=== PATIENT | female | born 1955 | race Caucasian/White ===

== ENCOUNTER 2017-04-27 17:40 | Inpatient (IN) | payer OTHER ==
[~2017-04-27] VITALS: Ht 165.1 cm; Wt 83.0 kg
[2017-04-27 17:42] VITALS: BP 176/79
[2017-04-27] MEDS ORDERED: SIMV20TA1 PO (17:47)
[2017-04-27] MEDS ORDERED: METF850T37 PO (17:47)
--- NOTE | 2017-04-27 17:50 | NUR ---
Patient to bed 07.
--- NOTE | 2017-04-27 17:54 | NUR ---
Dr. Auguste evaluating patient at bedside.
[2017-04-27] MEDS ORDERED: ASPIRIN 325 MG TAB PO ONE (18:00)
[2017-04-27] MEDS ORDERED: NITROGLYCERIN 0.4 MG TAB SL ONE (18:00)
--- NOTE | 2017-04-27 18:00 | NUR ---
PT STATES CHEST PAIN SINCE LAST NIGHT. DENIES N/V/D; SKIN IS PINK/WARM/DRY; AAOX4 WITH EVEN AND STEADY GAIT; LUNGS CLEAR BL; HR EVEN AND REGULAR; PT DENIES ANY FEVER, CP, SOB, OR COUGH AT THIS TIME; PATIENT STATES PAIN OF 6/10 AT THIS TIME; VSS; PATIENT POSITIONED FOR COMFORT; HOB ELEVATED; BEDRAILS UP X2; BED DOWN. ER MD MADE AWARE OF PT STATUS.
[2017-04-27 18:26] LABS: BASOPHILS # (AUTO) 0.2 K/uL (0.00-0.22); EOSINOPHILS # (AUTO) 0.3 K/uL (0-0.4); EOSINOPHILS % (AUTO) 2.6 % (0.0-4.0); HEMATOCRIT 39.2 % (36-48); HEMOGLOBIN 13.1 g/dL (12.0-16.0); LYMPHOCYTES # (AUTO) 3.1 K/uL (2.5-16.5); LYMPHOCYTES % (AUTO) 30.9 % (20.5-51.1); MEAN CORPUSCULAR HEMOGLOBIN 31 pg (27-31); MEAN CORPUSCULAR HGB CONC 34 g/dL (33-37); MEAN CORPUSCULAR VOLUME 92 fL (80-94); MONOCYTES # (AUTO) 0.8 K/uL (0.8-1.0); MONOCYTES % (AUTO) 7.9 % (1.7-9.3); NEUTROPHILS # (AUTO) 5.6 K/uL (1.8-7.7); NEUTROPHILS % (AUTO) 56.6 % (42.2-75.2); PLATELET COUNT (AUTO) 258 K/uL (140-450); RED BLOOD CELL COUNT(AUTO) 4.28 MIL/uL (4.20-5.40); RED CELL DISTRIBUTION WIDTH 13.4 % (11.6-13.7); WHITE BLOOD COUNT (AUTO) 9.9 K/uL (4.8-10.8)
--- NOTE | 2017-04-27 18:33 | NUR ---
PT DENIES CHEST PAIN AT THIS TIME. BP 126/68. HR 62, SPO2 92%. ON ROOM AIR.
[2017-04-27 18:37] LABS: ANION GAP 12.6 (8-16); CALCIUM 8.9 mg/dL (8.5-10.1); CARBON DIOXIDE 27.2 mmol/L (21-32); CREATININE 0.7 mg/dL (0.6-1.3); POTASSIUM 3.8 mmol/L (3.5-5.1)
[2017-04-27 18:42] LABS: ALBUMIN 3.7 g/dL (3.4-5.0); TOTAL BILIRUBIN 0.2 mg/dL (0.0-1.0)
[2017-04-27 18:43] LABS: INR 1.1 (0.8-1.2); PARTIAL THROMBOPLASTIN TIME 25.6 secs (22-35.6); PROTHROMBIN TIME 10.7 secs (10.8-13.4)
--- NOTE | 2017-04-27 19:00 | NUR ---
FAMILY AT BEDSIDE. NO C/O PAIN AT THIS TIME.
[2017-04-27] MEDS ORDERED: ONDANSETRON 4 MG/2 ML VIAL IVP PRN (19:10)
[2017-04-27] MEDS ORDERED: LORazepam 2 MG/ML VIAL IVP PRN (19:10)
[2017-04-27] MEDS ORDERED: INSULIN LISPRO SLIDING SCALE 100 UNITS/ML VIAL SUBQ PRN (19:10)
[2017-04-27] MEDS ORDERED: NITROGLYCERIN 2% 1 GM PKT TP SCH (19:10)
[2017-04-27] MEDS ORDERED: DEXTROSE 50% 50 ML SYR IVP PRN (19:10)
--- NOTE | 2017-04-27 19:25 | NUR ---
ENDORSED PT TO MAIL TECHNICIAN RN. PT RESTING IN BED, NO S/S OF RESPIRATORY DISTRESS . NO C/O CHEST PAIN .
--- NOTE | 2017-04-27 19:26 | NUR ---
PT RESTING IN BED, VSS. NO S/S OF DISTRESS NOTED. DENIES ANY CHEST PAIN AT THE MOMENT.
--- NOTE | 2017-04-27 19:29 | NUR ---
Patient will be admitted to care of DR KEENE. Admited to TELEMETRY. Will go to room 107 A. Belongings list completed. Report to KIERRA DELGADO.
--- NOTE | 2017-04-27 19:38 | NUR ---
PT TRASFERRED TO TELEMETRY BY RN AND EMT VIA [facility]. NO S/S OF DISTRESS NOTED DURING TRASFER.
--- NOTE | 2017-04-27 19:40 | NUR ---
ADMITTED 62 YEAR OLD FEMALE FROM ER. PT ARRIVED TO UNIT BY MILLICENT. INITIAL ASSESSMENT COMPLETED. PT AAOX4. PT DENIES PAIN OR DISCOMFORT. PT 'S SKIN IS INTACT. PT HAS IV ON RIGHT WRIST G 22; ASYMPTOMATIC, PATENT AND INTACT. PT'S FAMILY AT BEDSIDE. ORIENTED PT TO ROOM AND SURROUNDINGS AND USE OF CALL LIGHT. EXPLAINED PLAN OF CARE TO PT AND SHE VERBALIZES UNDERSTANDING. WILL CONTINUE TO MONITOR PT.
[2017-04-27 20:00] VITALS: BP 125/72
[2017-04-27] MEDS: BLOOD GLUCOSE MONITORING 1 DEV DEV FS SCH (21:42)
--- NOTE | 2017-04-27 22:21 | NUR ---
FLETCHER MATHEWS RN [facility] CAN NOT DO [place] STRESS TEST.PT HAS THIS TEST FOR TOMORROW.CALLED ORDERING DR.SHE SAID CALL .CALLED .HE ASKED ABOUT TROPONIN AND WHEN FOUND OUT IT IS NEGATIVE,SAID HE WILL SEE PT IN AM AND MAKE DECISION.INFORMED [facility].
[2017-04-28] VITALS (7 sets, daily range): BP systolic 100–132; BP diastolic 59–75
--- NOTE | 2017-04-28 00:05 | NUR ---
PT COMPLAINING OF GENERALIZED PAIN 04/22. VS STABLE, WILL MEDICATE ORDERED.
[2017-04-28] MEDS: HYDROcodone/APAP 5/325 MG 1 TAB TAB PO PRN ×3 (00:07→15:28)
--- NOTE | 2017-04-28 01:35 | NUR ---
PT SLEEPING AT THIS TIME, NO SIGNS OF DISTRESS OR DISCOMFORT NOTED. WILL CONTINUE TO MONITOR PT.
--- NOTE | 2017-04-28 04:01 | NUR ---
PT COMPLAINING OF GENERALIZED PAIN 01/20. PT STATES THAT SHE WANTS TYLENOL THIS TIME. WILL MEDICATE ORDERED.
[2017-04-28] MEDS: ACETAMINOPHEN 325 MG TAB PO PRN ×2 (04:03→12:00)
--- NOTE | 2017-04-28 05:04 | NUR ---
PT SLEEPING AT THIS TIME, NO SIGNS OF DISTRESS NOTED. WILL CONTINUE TO MONITOR PT.
[2017-04-28 05:53] LABS: BASOPHILS # (AUTO) 0.3 K/uL (0.00-0.22); BASOPHILS % (AUTO) 4.1 % (0.0-2.0); EOSINOPHILS # (AUTO) 0.2 K/uL (0-0.4); EOSINOPHILS % (AUTO) 3.1 % (0.0-4.0); HEMATOCRIT 37.8 % (36-48); HEMOGLOBIN 12.3 g/dL (12.0-16.0); LYMPHOCYTES # (AUTO) 2.6 K/uL (2.5-16.5); LYMPHOCYTES % (AUTO) 37.2 % (20.5-51.1); MEAN CORPUSCULAR HEMOGLOBIN 30 pg (27-31); MEAN CORPUSCULAR HGB CONC 32 g/dL (33-37); MEAN CORPUSCULAR VOLUME 92 fL (80-94); MONOCYTES # (AUTO) 0.6 K/uL (0.8-1.0); MONOCYTES % (AUTO) 8.8 % (1.7-9.3); NEUTROPHILS # (AUTO) 3.4 K/uL (1.8-7.7); NEUTROPHILS % (AUTO) 46.8 % (42.2-75.2); PLATELET COUNT (AUTO) 237 K/uL (140-450); RED BLOOD CELL COUNT(AUTO) 4.13 MIL/uL (4.20-5.40); RED CELL DISTRIBUTION WIDTH 13.1 % (11.6-13.7); WHITE BLOOD COUNT (AUTO) 7.1 K/uL (4.8-10.8)
[2017-04-28] MEDS: BLOOD GLUCOSE MONITORING 1 DEV DEV FS SCH ×3 (06:23→17:06)
[2017-04-28 06:27] LABS: ALBUMIN 3.2 g/dL (3.4-5.0); CALCIUM 8.2 mg/dL (8.5-10.1); CARBON DIOXIDE 28.9 mmol/L (21-32); CREATININE 0.6 mg/dL (0.6-1.3); MAGNESIUM 1.9 mg/dL (1.8-2.4); POTASSIUM 3.9 mmol/L (3.5-5.1); TOTAL BILIRUBIN 0.4 mg/dL (0.0-1.0); TOTAL PROTEIN, SERUM 6.2 g/dL (6.4-8.2)
--- NOTE | 2017-04-28 07:34 | NUR ---
ENDORSED PLAN OF CARE TO KIERRA BIRD PT IN STABLE CONDITION.
--- NOTE | 2017-04-28 07:35 | NUR ---
PT AWAKE AND ALERT, NO SIGNS OF ACUTE DISTRESS. BOWEL SOUNDS ACTIVE IN ALL 4 QUADRANTS, CONTINENT TO BOWEL AND BLADDER. ABDOMEN SOFT. SKIN INTACT. AMBULATORY WITH BRP. IV PATENT, NO REDNESS OR SWELLING AROUND INSERTION SITE. COMPLAINT OF HEADACHE, WILL MEDICATE. BED IN LOW POSITION WITH BILATERAL HALF SIDE RAILS UP, CALL LIGHT WITHIN REACH.
--- NOTE | 2017-04-28 08:35 | NUR ---
PATIENT HAS BEEN SCREENED AND CATEGORIZED MODERATE NUTRITION RISK. PATIENT WILL BE SEEN WITHIN 3-5 DAYS OF ADMISSION. 04/30/17-05/02/[address]
--- NOTE | 2017-04-28 08:56 | NUR ---
FAXED INITIAL REVIEW TO [facility] [phone] PHONE [place] [phone]
[2017-04-28] MEDS ORDERED: SIMVASTATIN 20 MG TAB PO SCH (09:00)
[2017-04-28] MEDS ORDERED: ENOXAPARIN 40 MG/0.4 ML SYR SUBQ SCH (09:00)
[2017-04-28] MEDS ORDERED: METOPROLOL 25 MG TAB PO SCH (09:00)
--- NOTE | 2017-04-28 09:00 | NUR ---
PT SEEN BY DR SMALLWOOD, ORDERED STRESS TREADMILL TEST INSTEAD OF LEXISCAN.
--- NOTE | 2017-04-28 09:30 | NUR ---
PATIENT AWAKE AND ALERT, TAKEN TO HAVE STRESS TREADMILL TEST.
--- NOTE | 2017-04-28 10:15 | NUR ---
PT BACK FROM RADIOLOGY, PT AWAKE AND ALERT, NO SIGNS OF ACUTE DISTRESS. STRESS TEST WAS NOT DONE AT THIS TIME WILL DO LATER TODAY AT 1345.
--- NOTE | 2017-04-28 10:15 | NUR ---
PER NURSE AT RADIOLOGY TO [place] STRESS TEST WILL NOT BE IN TODAY UNTIL [id number], WILL LARYNGOLOGIST PATIENT LATER TODAY FOR TREADMILL WHEN ARRIVES.
--- NOTE | 2017-04-28 13:28 | NUR ---
PT AWAKE AND ALERT, NO SIGNS OF ACUTE DISTRESS. TAKEN BY ELENITA TO RADIOLOGY FOR CARDIAC STRESS TEST TREADMILL.
--- NOTE | 2017-04-28 14:10 | NUR ---
PATIENT BROUGHT BACK FROM STRESS TEST, PATIENT AWAKE AND ALERT. WILL CONTINUE TO MONITOR.
--- NOTE | 2017-04-28 14:20 | NUR ---
STRESS TEST DONE
--- NOTE | 2017-04-28 15:30 | NUR ---
PT BLOOD SUGAR IS 220, PT REFUSED INSULIN, STATES THAT SHE TAKES METFORMIN AT HOME AND DOES NOT WANT TO TAKE INSULIN.
--- NOTE | 2017-04-28 16:45 | NUR ---
PAGED DR SMALLWOOD TO SEE IF PATIENT IS OKAY TO DISCHARGE.
--- NOTE | 2017-04-28 19:25 | NUR ---
RECEIVED REPORT FROM KIERRA BIRD AT BEDSIDE. INITIAL ASSESSMENT COMPLETED. PT AAOX4. PT DENIES PAIN OR DISCOMFORT. PT 'S SKIN IS INTACT. PT HAS IV ON RIGHT WRIST G 22; ASYMPTOMATIC, PATENT AND INTACT. PT'S FAMILY AT BEDSIDE. ORIENTED PT TO ROOM AND SURROUNDINGS AND USE OF CALL LIGHT. EXPLAINED PLAN OF CARE TO PT AND SHE VERBALIZES UNDERSTANDING. WILL CONTINUE TO MONITOR PT.
--- NOTE | 2017-04-28 19:30 | NUR ---
PT STATES THAT SHE FEELS OK TO GO HOME. PAGED DR. SMALLWOOD, AWAITING STUDENT OUTREACH COORDINATOR BACK.
--- NOTE | 2017-04-28 19:49 | NUR ---
PT AWAKE AND ALERT, NO SIGNS OF ACUTE DISTRESS. ENDORSED TO DINKEY DISPATCHER NURSE FOR CONTINUITY OF CARE.
--- NOTE | 2017-04-28 20:35 | NUR ---
TALKED TO DR. SMALLWOOD HE STATED THAT PT IS OK TO GO HOME.
--- NOTE | 2017-04-28 21:00 | NUR ---
TALKED TO DR. VILLEDA WHO IS COVERING FOR DR. KEENE, SHE STATED THAT PT TO FOLLOW HOME MEDICATIONS.
--- NOTE | 2017-04-28 21:25 | NUR ---
PT STABLE TO GO HOME, PT DENIES PAIN. PT DISCHARGED INSTRUCTIONS GIVEN. HEART MONITOR REMOVED, IV DISCONTINUED WITH TIP INTACT. SONS AT BEDSIDE.
== END 2017-04-28 21:30 | disposition home or self-care (01) | DRG 203 ==
LOC: MED 17:40 → MTU 19:21 → MMU 21:00
PROVIDERS: ADMIT Hospitalist; ATTEND Hospitalist
DX: R07.2 Precordial pain (principal); E11.65 Type 2 diabetes mellitus with hyperglycemia; E78.00 Pure hypercholesterolemia, unspecified; E78.5 Hyperlipidemia, unspecified; E66.9 Obesity, unspecified; Z68.30 Body mass index [BMI] 30.0-30.9, adult
CPT/HCPCS: 36415; 71010; 80053; 82948; 83735; 83880; 84484; 85025; 85610; 85730; 87081; 93005; 93017; 99285; J1650; J1815

== ENCOUNTER 2021-03-17 14:19 | Emergency (ER) | payer OTHER ==
[~2021-03-17] VITALS: Ht 165.1 cm; Wt 81.6 kg
[~2021-03-17 14:19] MED LIST: METF-350 PO; SIMV20TA1 PO
[2021-03-17 14:27] VITALS: BP 146/71
[2021-03-17] MEDS ORDERED: KETOROLAC 30 MG/ML VIAL IM ONE (14:45)
--- NOTE | 2021-03-17 14:45 | NUR ---
65 Y/O F BIB SPOUSE FROM HOME, PATIENT PRESENTS TO ED WITH R ARM PAIN THAT RADIATES TO WRIST AND HAND. PT STATES SHE HAD HER SECOND DOSE OF THE COVID VACCINE ON THE 03/10/21 AND HAS HAD ARM PAIN SINCE THEN. SWELLING AND PAIN AT THE SITE, NO REDNESS. DENIES N/V/D; SKIN IS PINK/WARM/DRY; AAOX4 WITH EVEN AND STEADY GAIT; LUNGS CLEAR BL; HR EVEN AND REGULAR; PT DENIES ANY FEVER, CP, SOB, OR COUGH AT THIS TIME; PATIENT STATES PAIN OF 9/10 AT THIS TIME; VSS; PATIENT POSITIONED FOR COMFORT; HOB ELEVATED; BEDRAILS UP X2; BED DOWN. ER MD MADE AWARE OF PT STATUS. PMH: CRISTINA MCKEON
[2021-03-17] MEDS ORDERED: METH750T5 PO ×2 (14:55→15:38)
[2021-03-17] MEDS ORDERED: NAPR-54 PO ×2 (14:55→15:38)
[2021-03-17 15:47] VITALS: BP 144/67
--- NOTE | 2021-03-17 15:47 | NUR ---
Patient discharged with v/s stable. Written and verbal after care instructions given and explained. Patient alert, oriented and verbalized understanding of instructions. Ambulatory with steady gait. All questions addressed prior to discharge. ID band removed. Patient advised to follow up with PMD. Rx of ROBAXIN AND NAPROXEN given. Patient educated on indication of medication including possible reaction and side effects. Opportunity to ask questions provided and answered.
== END 2021-03-17 15:47 | disposition home or self-care (01) ==
LOC: MED 14:19
DX: M79.601 Pain in right arm (principal); G62.9 Polyneuropathy, unspecified; E11.9 Type 2 diabetes mellitus without complications; I10 Essential (primary) hypertension; Z79.84 Long term (current) use of oral hypoglycemic drugs; Z79.899 Other long term (current) drug therapy
CPT/HCPCS: 96372; 99283; J1885

== ENCOUNTER 2023-12-19 19:52 | Emergency (ER) | payer OTHER ==
[~2023-12-19] VITALS: Ht 157.5 cm; Wt 81.6 kg
[~2023-12-19 19:52] MED LIST changes: +METH750T5 PO; +NAPR-54 PO; +SIMV-372 PO; -SIMV20TA1 PO
[2023-12-19 20:18] VITALS: BP 121/62; PULSE 70; RESP 16; TEMP 96.6; O2SAT 96
[2023-12-19 20:20] VITALS: O2SAT 96
[2023-12-19] MEDS: KETOROLAC 30 MG/ML VIAL IM ONE (22:49)
[2023-12-19] MEDS: ACETAMINOPHEN EXTRA STRENGTH 500 MG TAB PO ONE (22:50)
[2023-12-19] MEDS ORDERED: NAPR-54 PO (23:01)
== END 2023-12-19 23:06 | disposition home or self-care (01) ==
LOC: MED 19:52
DX: S13.4XXA Sprain of ligaments of cervical spine, initial encounter (principal); S33.5XXA Sprain of ligaments of lumbar spine, initial encounter; E11.9 Type 2 diabetes mellitus without complications; I10 Essential (primary) hypertension; Z79.4 Long term (current) use of insulin; Z79.899 Other long term (current) drug therapy; V49.88XA Car occupant (driver) (passenger) injured in other specified transport accidents, initial encounter; Y93.89 Activity, other specified; Y92.89 Other specified places as the place of occurrence of the external cause; Y99.8 Other external cause status
CPT/HCPCS: 70450; 71250; 72125; 73521; 73562; 96372; 99285; J1885